=== PATIENT | male | born 1960 | race African-American/Black ===

== ENCOUNTER 2025-03-22 10:17 | Emergency (ER) | payer OTHER ==
[~2025-03-22] VITALS: Ht 177.8 cm; Wt 91.0 kg
[2025-03-22 10:20] VITALS: O2SAT 98
[2025-03-22] MEDS: SODIUM CHLORIDE 0.9% 1,000 ML IV ONE (10:54)
[2025-03-22] MEDS: KETOROLAC 15MG/ML VIAL IV ONE (10:54)
[2025-03-22 11:39] LABS: BASOPHILS % 0.7 % (0.0-2.0); EOSINOPHILS % 0.0 % (0.0-5.0); HEMATOCRIT. 44.8 % (42.0-52.0); HEMOGLOBIN. 14.7 g/dL (14.0-18.0); LYMPHOCYTES % 28.8 % (20.0-50.0); MEAN PLATELET VOLUME 8.5 fl (7.4-10.4); MONOCYTES % 9.2 % (2.0-8.0); NEUTROPHILS % 61.3 % (40.0-76.0); PLATELET 262 x1000/uL (130-400); RED BLOOD CELL COUNT 4.54 mill/uL (4.7-6.1); RED CELL DISTRIBUTION WIDTH 15.1 % (11.6-14.6)
[2025-03-22 12:00] LABS: CREATININE 1.3 mg/dL (0.6-1.3); ETHANOL BLOOD < 10 mg/dL (<10); UREA NITROGEN BLOOD 11 mg/dL (9-23)
[2025-03-22 12:01] LABS: PROTEIN TOTAL 7.8 g/dL (6.0-8.3); TROPONIN I HIGH SENSITIVITY 9 ng/L (3.0-53)
[2025-03-22 12:02] LABS: ASPARTATE AMINOTRANSFERASE 48 IU/L (<34); BILIRUBIN DIRECT 0.4 mg/dL (<=3.0); BILIRUBIN TOTAL 1.2 mg/dL (0.1-1.0)
[2025-03-22 14:16] VITALS: BP 114/77; PULSE 60; RESP 14; TEMP 36.6; O2SAT 98
== END 2025-03-22 14:37 | disposition short-term general hospital (02) ==
LOC: ER 10:17
DX: R07.89 Other chest pain (principal); E11.9 Type 2 diabetes mellitus without complications; I10 Essential (primary) hypertension; F03.90 Unspecified dementia, unspecified severity, without behavioral disturbance, psychotic disturbance, mood disturbance, and anxiety
CPT/HCPCS: 80076; 80048; 80320; 83690; 85025; 84484; 36415; 71045; 74176; 93005; 96361; 96374; 99285; J1885; J7030; G0480